=== PATIENT | male | born 1960 | race Caucasian/White ===

== ENCOUNTER 2017-11-24 17:48 | Emergency (ER) | payer MEDICAID ==
[~2017-11-24] VITALS: Ht 172.7 cm; Wt 90.7 kg
[2017-11-24 18:07] VITALS: BP_SYST 121
[2017-11-24] MEDS ORDERED: LIDOCAINE/EPI 2% 1:100000 20 ML VIAL INJ ONE (19:45)
[2017-11-24 20:40] VITALS: BP_SYST 121
== END 2017-11-24 22:35 | disposition home or self-care (01) ==
LOC: SED 17:48
DX: L02.811 Cutaneous abscess of head [any part, except face] (principal); I10 Essential (primary) hypertension
CPT/HCPCS: 99283

== ENCOUNTER 2021-08-21 23:58 | Emergency (ER) | payer MEDICAID ==
[~2021-08-21] VITALS: Ht 175.3 cm; Wt 92.1 kg
[2021-08-22 00:10] VITALS: BP_SYST 167
--- NOTE | 2021-08-22 00:16 | NUR ---
RECEIVED PT C/O GEN RASH AND ITCHING X2 DAYS. DENIES FEVER AND COUGH.
[2021-08-22] MEDS ORDERED: ceFAZolin SODIUM 1 GM VIAL IM ONE (01:00)
[2021-08-22] MEDS ORDERED: CEPH-548 PO (01:01)
[2021-08-22 01:29] VITALS: BP_SYST 144
--- NOTE | 2021-08-22 01:30 | NUR ---
DC PT HOME AAOX4 NO SOB NOTED AND NOT IN ANY DISTRESS. DC INSTRUCTION AND PRESCRIPTION WERE GIVEN TO PT BY MD, ALL QUESTION WERE ANSWERED AND VERBALIZED UNDRSTANDING. PT AMBULATED WITH STEADY GAIT OUT OF DEPT.
== END 2021-08-22 01:29 | disposition home or self-care (01) ==
LOC: SED 23:58
DX: L73.9 Follicular disorder, unspecified (principal); E11.9 Type 2 diabetes mellitus without complications; R03.0 Elevated blood-pressure reading, without diagnosis of hypertension; Z79.899 Other long term (current) drug therapy
CPT/HCPCS: 96372; 99283; J0690

== ENCOUNTER 2022-05-30 19:29 | Emergency (ER) | payer MEDICAID ==
[~2022-05-30 19:29] MED LIST: CEPH-548 PO
--- NOTE | 2022-05-30 19:35 | NUR ---
Triaged and placed TO ER BED. No acute respiratory distress at this time. VSS. Informed patient to notify ED staff for any changes in condition or worsening of symptoms while waiting to be seen by a provider. Patient verbalized understanding.
--- NOTE | 2022-05-30 19:36 | NUR ---
Dr. Griffin in triage room examining the patient.
--- NOTE | 2022-05-30 19:38 | NUR ---
Patient placed in ER Hallway 1 for evaluation. VSS, no acute respiratory distress noted at this time. Instructed to notify ED staff for any changes in condition or worsening of symptoms. Patient verbalized understanding.
[2022-05-30] MEDS ORDERED: cefTRIAXone 1 GM in LIDOCAINE 1%, 20 ML MDV 2.1 ML IM ONE (19:45)
[2022-05-30] MEDS ORDERED: LIDOCAINE 1% 10 MG/ML, 20 ML MDV INJ ONE (19:45)
--- NOTE | 2022-05-30 19:47 | NUR ---
Dr. Griffin is at bedside examining the patient.
[2022-05-30] MEDS ORDERED: AUG875 PO (20:15)
[2022-05-30] MEDS ORDERED: NAPR-1172 PO (20:16)
[2022-05-30 20:19] VITALS: BP_SYST 147
--- NOTE | 2022-05-30 20:20 | NUR ---
Patient given written and verbal discharge instructions BY DR. OVALLE and verbalizes understanding. ER MD discussed with patient the results and treatment provided. Patient in stable condition. ID arm band removed. Rx of AUGMENTIN AND NAPROXEN given. Patient educated on pain management and to follow up with PMD. Pain Scale 4/10. Opportunity for questions provided and answered. Medication side effect fact sheet provided.
== END 2022-05-30 20:19 | disposition home or self-care (01) ==
LOC: SED 19:29
DX: S61.212A Laceration without foreign body of right middle finger without damage to nail, initial encounter (principal); I10 Essential (primary) hypertension; Z79.899 Other long term (current) drug therapy; W54.0XXA Bitten by dog, initial encounter; Y93.89 Activity, other specified; Y92.89 Other specified places as the place of occurrence of the external cause; Y99.8 Other external cause status
CPT/HCPCS: 99283; 12001; 96372; J0696; J2001

== ENCOUNTER 2022-07-09 17:23 | Emergency (ER) | payer MEDICAID ==
[~2022-07-09] VITALS: Ht 175.3 cm; Wt 90.7 kg
[~2022-07-09 17:23] MED LIST changes: +AUG875 PO; +NAPR-1172 PO
[2022-07-09 17:38] VITALS: BP_SYST 136
--- NOTE | 2022-07-09 18:00 | NUR ---
Placed in room 07 . Placed on residential monitor, blood pressure machine and pulse oximeter. To gown for exam. Side rails up. Report given to IAN CLEMENS.
--- NOTE | 2022-07-09 18:09 | NUR ---
Pt BIB self. c/o LL flank pain. pain 10/01. Pt states dysuria. pt states buring upon urination and frequency. Pt denies N/V/D. Pt denies taking medication for pain relief. Pt denies trauma to area. Pt afebrile. VSS. Pt states hx of CHF for 7 yrs. Pt speaking full complete sentences. Pt in bed with side rails up.
[2022-07-09] MEDS ORDERED: KETOROLAC TROMETHAMINE 30 MG VIAL IM ONE (18:30)
--- NOTE | 2022-07-09 18:47 | NUR ---
# 20 gauge angiocath placed to LAC. Use of asceptic technique. Opsite placed over site. Blood return noted. Blood for lab drawn from site. Flushed with 10 cc of normal saline. No evidence of infiltration noted. Patient tolerated well.
--- NOTE | 2022-07-09 18:51 | NUR ---
Patient transported to radiology via WALKING, accompanied by PAULA.
[2022-07-09 18:54] LABS: BASOPHILS # (AUTO) 0.1 K/uL (0.0-0.2); EOSINOPHILS # (AUTO) 0.3 K/uL (0.0-0.4); EOSINOPHILS % (AUTO) 4.8 % (0.0-4.0); HEMOGLOBIN 14.7 g/dL (14.0-18.0); LYMPHOCYTES % (AUTO) 28.3 % (20.5-51.5); MEAN CORPUSCULAR HEMOGLOBIN 31 pg (27-31); MEAN CORPUSCULAR HGB CONC 33 % (32-36); MEAN CORPUSCULAR VOLUME 94 fL (79.0-98.0); MONOCYTES # (AUTO) 0.7 K/uL (0.0-1.0); MONOCYTES % (AUTO) 9.3 % (1.7-9.3); NEUTROPHILS # (AUTO) 4.1 K/uL (1.8-7.7); NEUTROPHILS % (AUTO) 56.6 % (40.0-70.0); PLATELET COUNT (AUTO) 273 K/uL (130-430); RED CELL DISTRIBUTION WIDTH 14.3 % (9.0-15.0); WHITE BLOOD COUNT (AUTO) 7.2 K/uL (4.8-10.8)
[2022-07-09 19:32] LABS: CALCIUM 8.3 mg/dL (8.4-11.0); CREATININE 0.98 mg/dL (0.55-1.30); TOTAL BILIRUBIN 0.3 mg/dL (0.0-1.0)
--- NOTE | 2022-07-09 19:43 | NUR ---
Rec report from IAN Guillermo. Pt from home with left flank pain x 1 week accompanied with burning and frequency with urination. Pt with HR in the low 40s, MADE AWARE. Pt A&O X4 and following commands.
[2022-07-09 20:17] LABS: BILIRUBIN,URINE NEGATIVE (NEGATIVE); CLARITY/URINE CLEAR (CLEAR); COLOR,URINE YELLOW (YELLOW); GLUCOSE,URINE NEGATIVE (NEGATIVE); KETONES,URINE NEGATIVE (NEGATIVE); LEUKOCYTE ESTERASE ,URINE NEGATIVE (NEGATIVE); NITRITE, URINE NEGATIVE (NEGATIVE); PROTEIN URINE 1+ (NEGATIVE); UROBILINOGEN,URINE 0.2 (0.2-1.0)
[2022-07-09 20:46] LABS: BLOOD, URINE TRACE (NEGATIVE)
[2022-07-09 20:50] LABS: BACTERIA,URINE RARE /HPF (None Seen); HYALINE CASTS, URINE 0-10 /LPF (None Seen); MUCUS,URINE 3+ /LPF (None Seen); RBC,URINE 0-3 /HPF (0-3)
[2022-07-09 21:21] VITALS: BP_SYST 134
--- NOTE | 2022-07-09 21:22 | NUR ---
Patient given written and verbal discharge instructions and verbalizes understanding. ER MD discussed with patient the results and treatment provided. Patient in stable condition. ID arm band removed. IV catheter removed intact and dressing applied, no active bleeding. No Rx given. Patient educated on pain management and to follow up with PMD. Pain Scale 2/10. Opportunity for questions provided and answered. Medication side effect fact sheet provided.
== END 2022-07-09 21:21 | disposition home or self-care (01) ==
LOC: SED 17:23
DX: R10.9 Unspecified abdominal pain (principal); R39.15 Urgency of urination; E11.9 Type 2 diabetes mellitus without complications; I10 Essential (primary) hypertension; Z79.899 Other long term (current) drug therapy
CPT/HCPCS: 99285; 74176; 80053; 81000; 83690; 85025; 36415; 93005; 76376; 96372; J1885

== ENCOUNTER 2023-05-17 13:47 | Emergency (ER) | payer MEDICAID ==
[~2023-05-17] VITALS: Ht 172.7 cm; Wt 88.5 kg
[2023-05-17 13:53] VITALS: BP_SYST 140; PULSE 81; RESP 20; TEMP 97.9; O2SAT 99
[2023-05-17 14:32] LABS: BASOPHILS # (AUTO) 0.1 K/uL (0.0-0.2); BASOPHILS % (AUTO) 0.8 % (0.0-2.0); EOSINOPHILS # (AUTO) 0.2 K/uL (0.0-0.4); HEMATOCRIT 42.6 % (36-54); HEMOGLOBIN 14.3 g/dL (14.0-18.0); LYMPHOCYTES # (AUTO) 1.6 K/uL (1.0-5.5); LYMPHOCYTES % (AUTO) 19.6 % (20.5-51.5); MEAN CORPUSCULAR HEMOGLOBIN 31 pg (27-31); MEAN CORPUSCULAR HGB CONC 34 % (32-36); MEAN CORPUSCULAR VOLUME 91 fL (79.0-98.0); MONOCYTES # (AUTO) 0.6 K/uL (0.0-1.0); MONOCYTES % (AUTO) 7.6 % (1.7-9.3); NEUTROPHILS # (AUTO) 5.9 K/uL (1.8-7.7); PLATELET COUNT (AUTO) 317 K/uL (130-430); RED BLOOD CELL COUNT(AUTO) 4.66 MIL/uL (4.2-6.2); RED CELL DISTRIBUTION WIDTH 13.9 % (9.0-15.0); WHITE BLOOD COUNT (AUTO) 8.4 K/uL (4.8-10.8)
[2023-05-17 14:50] LABS: PROTHROMBIN TIME 10.5 SECS (9.5-12.5)
[2023-05-17 15:02] LABS: ANION GAP 12 (5-15); CALCIUM 8.6 mg/dL (8.4-11.0); CARBON DIOXIDE 24 mmol/L (23-29); CHLORIDE 106 mmol/L (98-107); CREATININE 1.38 mg/dL (0.55-1.30); GFR AFRICAN AMERICAN 67 mL/min (>90); GFR NON AFRICAN-AMERICAN 55 mL/min (>90); GLUCOSE 116 mg/dL (74-106); SODIUM SERUM 142 mmol/L (136-145); UREA NITROGEN, BLOOD 19 mg/dL (8-21)
[2023-05-17 15:10] VITALS: BP_SYST 140; PULSE 81; RESP 20; TEMP 97.9; O2SAT 99
[2023-05-17] MEDS ORDERED: FURO-149 PO (17:02)
[2023-05-17] MEDS ORDERED: POTA-197 PO (17:02)
[2023-05-17] MEDS ORDERED: COR12.5 PO (17:02)
[2023-05-17] MEDS: ASPIRIN 81 MG TABLET(ECOTRIN) PO ONE (17:40)
== END 2023-05-17 17:32 | disposition left against medical advice (07) ==
LOC: SED 13:47
DX: R06.02 Shortness of breath (principal); E11.9 Type 2 diabetes mellitus without complications; I10 Essential (primary) hypertension; Z79.899 Other long term (current) drug therapy
CPT/HCPCS: 36415; 71045; 80048; 83880; 84484; 85025; 85610; 85730; 93005; 99285

== ENCOUNTER 2023-10-18 05:42 | Emergency (ER) | payer MEDICAID, OTHER ==
[~2023-10-18] VITALS: Ht 172.7 cm; Wt 86.2 kg
[~2023-10-18 05:42] MED LIST changes: +COR12.5 PO; +FURO-149 PO; +POTA-197 PO
[2023-10-18 05:57] VITALS: BP_SYST 170; PULSE 71; RESP 16; TEMP 97.5; O2SAT 97
[2023-10-18] MEDS ORDERED: LISINOPRIL 10 MG TABLET (PRINIVIL) PO ONE (06:15)
[2023-10-18] MEDS ORDERED: LISI-209 PO (06:25)
[2023-10-18] MEDS ORDERED: SPIR25TA PO (06:25)
[2023-10-18] MEDS ORDERED: CARV25TA55 PO (06:25)
[2023-10-18] MEDS ORDERED: FURO-150 PO (06:25)
[2023-10-18] MEDS ORDERED: COR12.5 PO (06:25)
[2023-10-18] MEDS ORDERED: ATOR20TA64 PO (06:25)
[2023-10-18] MEDS: LISINOPRIL 10 MG TABLET (PRINIVIL) PO ONE (06:36)
[2023-10-18 06:37] VITALS: BP_SYST 142; PULSE 71; RESP 16; TEMP 97.5; O2SAT 97
== END 2023-10-18 06:37 | disposition home or self-care (01) ==
LOC: SED 05:42
DX: I11.0 Hypertensive heart disease with heart failure (principal); Z76.0 Encounter for issue of repeat prescription; I50.9 Heart failure, unspecified; E11.9 Type 2 diabetes mellitus without complications; Z79.899 Other long term (current) drug therapy; Z79.2 Long term (current) use of antibiotics
CPT/HCPCS: 99283